=== PATIENT | female | born 1990 | race Caucasian/White ===

== ENCOUNTER 2020-07-28 18:27 | Emergency (ER) | payer OTHER ==
[2020-07-28 19:47] LABS: HEMOGLOBIN 9.1 gm/dl (12.3-15.3); RED BLOOD COUNT 4.93 M/UL (4.00-5.10); WHITE BLOOD COUNT 11.2 K/UL (4.5-11.0)
[2020-07-28 19:55] LABS: BUN/CREATININE RATIO 13 (0-10)
[2020-07-28] MEDS ORDERED: IBUPROFEN600 MG PO (21:34)
[2020-07-28] MEDS ORDERED: KEFLEX CAP 250250 MG PO (21:34)
== END 2020-07-28 21:45 | disposition left against medical advice (07) ==
LOC: ER1 18:27
PROVIDERS: Internal Medicine
DX: N39.0 Urinary tract infection, site not specified (principal); F17.210 Nicotine dependence, cigarettes, uncomplicated; Z86.19 Personal history of other infectious and parasitic diseases
CPT/HCPCS: 80048; 81001; 85025; 96365; 99283; J0696

== ENCOUNTER 2021-01-02 16:12 | Emergency (ER) | payer OTHER ==
[~2021-01-02 16:12] MED LIST: IBUPROFEN600 MG PO; KEFLEX CAP 250250 MG PO
== END 2021-01-02 19:51 | disposition home or self-care (01) ==
LOC: ER1 16:12
DX: O9A.212 Injury, poisoning and certain other consequences of external causes complicating pregnancy, second trimester (principal); M54.2 Cervicalgia; M25.561 Pain in right knee; O99.332 Smoking (tobacco) complicating pregnancy, second trimester; F17.210 Nicotine dependence, cigarettes, uncomplicated; Z86.19 Personal history of other infectious and parasitic diseases
CPT/HCPCS: 72125; 73564; 99284

== ENCOUNTER → 2021-04-24 | Outpatient (CLI) | payer OTHER | LOC: OPSV 11:00 | DX: O99.019 Anemia complicating pregnancy, unspecified trimester (principal) | CPT/HCPCS: 96365; J1756 ==

== ENCOUNTER → 2021-05-01 | Outpatient (CLI) | payer OTHER ==
[~2021-05-01] VITALS: Ht 167.6 cm; Wt 76.7 kg
== END ==
LOC: OPSV 11:00
DX: O99.019 Anemia complicating pregnancy, unspecified trimester (principal); D64.89 Other specified anemias
CPT/HCPCS: 96365; J1756

== ENCOUNTER → 2021-05-29 | Outpatient (CLI) | payer OTHER ==
[~2021-05-29] VITALS: Ht 167.6 cm; Wt 70.3 kg
== END ==
LOC: OPSV 05-09 09:00
DX: O99.019 Anemia complicating pregnancy, unspecified trimester (principal); Z3A.00 Weeks of gestation of pregnancy not specified
CPT/HCPCS: 96365; J1756

== ENCOUNTER 2021-06-05 13:34 | Inpatient (IN) | payer OTHER ==
[~2021-06-05] VITALS: Ht 167.6 cm; Wt 83.9 kg
[2021-06-05 15:19] LABS: HEMOGLOBIN 7.9 gm/dl (12.3-15.3); RED BLOOD COUNT 3.67 M/UL (4.00-5.10); WHITE BLOOD COUNT 7.6 K/UL (4.5-11.0)
[2021-06-07] MEDS ORDERED: IRON325 M1 PO (06:32)
[2021-06-08 08:02] LABS: HEMOGLOBIN 6.7 gm/dl (12.3-15.3)
[2021-06-09] MEDS ORDERED: IBUPROFEN800 MG PO (12:58)
[2021-06-09] MEDS ORDERED: COLACE100 MG PO (12:58)
[2021-06-09] MEDS ORDERED: HEMOCYTE324 MG PO (12:58)
== END 2021-06-09 12:58 | disposition home or self-care (01) | DRG 806 ==
LOC: GENOP 13:34 → OB 06-06 17:41
PROVIDERS: Obstetrics & Gynecology; ADMIT Obstetrics & Gynecology
PROC: 4A1HXCZ Monitoring of Products of Conception, Cardiac Rate, External Approach (ICD-10-PCS; 2021-06-05)
PROC: 10E0XZZ Delivery of Products of Conception, External Approach (ICD-10-PCS; principal; 2021-06-07)
PROC: 3E033VJ Introduction of Other Hormone into Peripheral Vein, Percutaneous Approach (ICD-10-PCS; 2021-06-07)
PROC: 10907ZC Drainage of Amniotic Fluid, Therapeutic from Products of Conception, Via Natural or Artificial Opening (ICD-10-PCS; 2021-06-07)
PROC: 3E0234Z Introduction of Serum, Toxoid and Vaccine into Muscle, Percutaneous Approach (ICD-10-PCS; 2021-06-07)
PROC: 3E02340 Introduction of Influenza Vaccine into Muscle, Percutaneous Approach (ICD-10-PCS; 2021-06-07)
DX: O99.02 Anemia complicating childbirth (principal); O98.42 Viral hepatitis complicating childbirth; Z20.822 Contact with and (suspected) exposure to COVID-19; Z37.0 Single live birth; O41.03X0 Oligohydramnios, third trimester, not applicable or unspecified; Z3A.36 36 weeks gestation of pregnancy; D64.9 Anemia, unspecified; B18.2 Chronic viral hepatitis C; F17.210 Nicotine dependence, cigarettes, uncomplicated; Z23 Encounter for immunization
CPT/HCPCS: 36415; 81001; 82800; 85014; 85018; 85025; 86850; 86900; 86901; 86920; 87070; 87077; 87186; 87205; 90686; 90715; 96360; 96361; J2590; J3010; J7120; U0002